=== PATIENT | female | born 1970 | race Caucasian/White ===

== ENCOUNTER → 2016-09-09 | Outpatient (CLI) | payer OTHER ==
[~2016-09-09] VITALS: Ht 170.2 cm; Wt 80.7 kg
[~2016-09-09] MED LIST: BACLOFEN 10 MG Table PO; BACLOFEN 10 MG10 MG PO; BACLOFEN 10MG T10 M1 PO; CARISOPRODOL 3350 MG PO; DILAUDID 4 MG TA4 M1 PO; FLEXERIL PO; INDERAL LA 80 M80 M1 PO; MAXALT MLT10 MG DIS; MEDROLDOSEPACK PO; MOM PO; MS CONTIN30 MG PO; NAPROSYN500 MG PO; NEURONTIN 300300 M1 PO; NORCO 5-325 TA1 EACH PO; NORCO 7.5-3251 EACH PO; NORTRIPTYLINE H25 M3 PO; OPANA5 MG PO; OSCIMIN0.125 M1 PO; OXYCODONE-ACET1 EAC2 PO; OXYCONTIN10 M1 PO; OXYCONTIN10 MG PO; OXYCONTIN20 M1 PO; OXYCONTIN20 MG PO; OXYCONTIN30 MG PO; PERCOCET 10-321 EACH PO; PERCOCET 5-3251 EACH; PREDNISONE 20 M20 MG PO; PROVENTIL IN; RELAFEN750 MG PO; REMERON 30 MG T30 M1 PO; REMERON30 MG PO; RESTORIL15 MG PO; ROZEREM 8 MG TAB8 MG PO; SENEXON-S TABL1 EACH PO; TEGRETOL XR100 MG PO; VENTOLIN HFA INH8 GM IH; ZOFRAN 4 MG ORAL4 M1 DIS; ZOFRAN 4 MG ORAL4 MG PO; ZOFRAN ODT4 MG PO; ZOFRAN4 MG PO
--- NOTE | ~2016-09-09 | HPC ---
[facility] [place] [address] PAIN MANAGEMENT CONSULTATION Name: LYNN ANDERSON Room #: REG [facility] Lam#: [id number] Admission: 09/09/16 Attend Phys: Alvin Dickens DO Discharge: Date of : 70 Report #: [id number] THIS REPORT FOR: //name// CC: Lauren Dickens DATE OF SERVICE: 09/09/2016 The patient is a 46-year-old female well known to pain clinic, typically treated for lumbar radiculopathy status post decompressive laminectomy, axial back pain requiring complex medication management. Recently diagnosed with migraine headaches as well. She has been stable on baseline medications including OxyContin 30 mg b.i.d., Percocet 10/325 up to 4 a day, gabapentin 300 mg b.i.d., baclofen 10 mg 4 times a day and Inderal 80 mg b.i.d. with occasional use of Maxalt to p.r.n. for headaches. He returns to pain clinic today. Last urine drug screen 06/18/2016 was positive for prescribed medications. We reviewed the fact that opiate medications are being used to provide analgesia adequate to support activities of daily living, not attempting to achieve a specific pain score on the 0-10 Visual Analog Scale. The current opiate medications are providing sufficient analgesia to allow the patient to participate in activities of daily living. The patient is not exhibiting any aberrant behavior suggestive of drug diversion. The patient is not having any adverse reactions to medications. The patient is not suffering from daytime somnolence or mental acuity changes. The patient is managing opiate-induced constipation with appropriate beih-wuf-betyces agents and dietary considerations. The patient was counseled on concern for caution with operating a motor vehicle while using opiate medications. A physical exam was performed and the patient's functional status was evaluated. All patients with back pain were advised against the bed rest greater than 4 days and were advised to return to normal activities. Pain score assessment was noted and the treatment plan was reviewed with the patient. All current medications, both prescribed and OTC were reviewed and reconciled on the electronic medical record. Tobacco screening was accomplished and smoking cessation was advised when indicated. BMI was noted and diet/exercise modification was recommended for all patients following outside normal parameters. I reviewed with the patient today their responsibilities to safeguard prescription medications, reviewed their responsibility to utilize medications only as prescribed by the physician. They are to seek and receive pain medications only from 1 physician group ( [facility]). They are to use 1 pharmacy and keep the clinic informed if they change pharmacies. Their responsibilities include making followup visits in a timely fashion and to avoid abrupt discontinuation of medication usage. Their responsibilities further [address] [address] PAIN MANAGEMENT CONSULTATION Name: LYNN ANDERSON Room #: REG JULIA Lam#: [id number] Admission: 09/09/16 Attend Phys: Alvin Dickens DO Discharge: Date of : 70 Report #: [id number] include bringing their medications (bottles from the pharmacy with residual pills) to the visit for possible confirmation of pill counts and the patient understands it is their responsibility to submit to random drug screens to ensure both that the medications prescribed are present, and that no other controlled substances are present. All prescriptions provided today were generated electronically. The patient has well medications that are providing sufficient analgesia to participate in activities of daily living. She has had acute change in symptoms. She does have some pain in the left hip. She woke up with pain after a day spent painting up and down on floor to paint the trim. She notes the pain was quite problematic. She took some wmsm-qpv-adaxhon anti-inflammatories with nominal efficacy. PHYSICAL EXAMINATION: Today shows pleasant 46-year-old female in moderate distress, at present, rating her pain generally 4/10, chronic back pain, but the hip pain is a 6 or 7/10. BMI is 27.9 kilograms per meter squared. Vital signs, blood pressure 143/87, pulse 99, respirations 16. Cranial nerves 2-12 are grossly intact. Pupils equal, reactive to light and accommodation. Extraocular muscles are intact. Rises from chair using armrest, moderately antalgic gait. Lower extremity strength is diminished, but symmetric. She has significant pain with passive rotation of left hip and pain with resistance abduction. ASSESSMENT: Symptomatic lumbar radiculopathy status post decompressive laminectomy, axial back pain requiring complex medication management. Comorbidity includes migraine headaches. RECOMMENDATION: Continue current medication unchanged, OxyContin 30 mg b.i.d., Percocet 10/325 up to 4 a day, gabapentin 300 mg b.i.d., baclofen 10 mg 4 times a day and Inderal 80 mg b.i.d. ASSESSMENT #2 1. Acute exacerbation of left hip DJD, possible component of left trochanteric bursitis. RECOMMENDATIONS: 1. X-rays of the hip today and 2. Left hip joint injection under fluoroscopy. PROCEDURE NOTE: After written informed consent was obtained, the patient placed in supine position. Skin overlying the left hip was cleansed with ChloraPrep. Skin wheal with Xylocaine was raised. A 22-gauge stylet needles were placed to contact the proximal aspect of the acetabular ball. Negative aspiration was accomplished. 1 mL of Omnipaque was injected, which showed spread within the joints followed with 40 mg triamcinolone plus 2 mL of 0.5% preservative-free bupivacaine. Needle was removed. The area was cleansed, Band-Aids applied. [facility] [address] [place] [address] PAIN MANAGEMENT CONSULTATION Name: LYNN ANDERSON Room #: REG [facility].#: [id number] Admission: 09/09/16 Attend Phys: Alvin Dickens DO Discharge: Date of : 70 Report #: [id number] The patient monitored for an appropriate period of time, discharged in good and stable condition. <ELECTRONICALLY SIGNED> By: Alvin Dickens DO 09/10/16 0837 [id number] 21 Alvin Dickens DO /nt
[2016-09-09 11:20] VITALS: BP 140/87
== END | disposition home or self-care (01) ==
LOC: PAIN 07:15
DX: M25.552 Pain in left hip (principal); M54.16 Radiculopathy, lumbar region; G43.909 Migraine, unspecified, not intractable, without status migrainosus

== ENCOUNTER → 2016-12-03 | Outpatient (CLI) | payer OTHER ==
[~2016-12-03] VITALS: Ht 170.2 cm; Wt 81.3 kg
--- NOTE | ~2016-12-03 | HPC ---
[facility] [address] [place] [address] PAIN MANAGEMENT CONSULTATION Name: LYNN ANDERSON Room #: REG [facility].#: [id number] Admission: 12/03/16 Attend Phys: Alvin Dickens DO Discharge: Date of : 70 Report #: [id number] THIS REPORT FOR: //name// CC: Lauren Dickens The patient is a 46-year-old female long known to the pain clinic, typically treated for chronic pain syndrome, lumbar radiculopathy status post decompressive laminectomy, axial back pain requiring high risk medication management. Last seen in the pain clinic 09/09/2016. Continued on Inderal and Maxalt for migraine headaches. Scheduled 2 narcotics including OxyContin 30 mg b.i.d., Percocet 10/325 mg four a day, baclofen 10 mg 4 times a day, gabapentin 300 mg b.i.d. for lumbar radicular pain status post decompressive laminectomy and fusion. He returns to pain clinic today noting medications continued to provide sufficient analgesia to participate in activities of daily living, rates her pain 4 on VAS, notes the pain is exacerbated with standing and walking too long. Having no problems daytime somnolence, mental acuity changes, constipation. We reviewed the fact that opiate medications are being used to provide analgesia adequate to support activities of daily living, not attempting to achieve a specific pain score on the 0-10 Visual Analog Scale. The current opiate medications are providing sufficient analgesia to allow the patient to participate in activities of daily living. The patient is not exhibiting any aberrant behavior suggestive of drug diversion. The patient is not having any adverse reactions to medications. The patient is not suffering from daytime somnolence or mental acuity changes. The patient is managing opiate-induced constipation with appropriate bifa-wso-pxxygze agents and dietary considerations. The patient was counseled on concern for caution with operating a motor vehicle while using opiate medications. A physical exam was performed and the patient's functional status was evaluated. All patients with back pain were advised against the bed rest greater than 4 days and were advised to return to normal activities. Pain score assessment was noted and the treatment plan was reviewed with the patient. All current medications, both prescribed and OTC were reviewed and reconciled on the electronic medical record. Tobacco screening was accomplished and smoking cessation was advised when indicated. BMI was noted and diet/exercise modification was recommended for all patients following outside normal parameters. I reviewed with the patient today their responsibilities to safeguard prescription medications, reviewed their responsibility to utilize medications only as prescribed by the physician. They are to seek and receive pain medications only from 1 physician group ( [facility]). They are to use 1 pharmacy and keep the clinic informed if they change pharmacies. Their [address] [address] PAIN MANAGEMENT CONSULTATION Name: LYNN ANDERSON Room #: REG JULIA Lam#: [id number] Admission: 12/03/16 Attend Phys: Alvin Dickens DO Discharge: Date of : 70 Report #: [id number] responsibilities include making followup visits in a timely fashion and to avoid abrupt discontinuation of medication usage. Their responsibilities further include bringing their medications (bottles from the pharmacy with residual pills) to the visit for possible confirmation of pill counts and the patient understands it is their responsibility to submit to random drug screens to ensure both that the medications prescribed are present, and that no other controlled substances are present. All prescriptions provided today were generated electronically. PHYSICAL EXAMINATION: Unchanged, 46-year-old female, BMI is 28.1. Vital signs stable. Rises chair using armrest. Diffuse tenderness across the low back, mildly antalgic gait. Lower extremity strength is diminished, but symmetric. ASSESSMENT: Symptomatic lumbar radiculopathy status post decompressive laminectomy requiring complex medication management, axial back pain, and chronic migraine headaches. RECOMMENDATIONS: Renew current medication unchanged for 2 months. Last urine drug screen 06/18/2016, positive for prescribed medications. Discharged in good and stable condition. <ELECTRONICALLY SIGNED> By: Alvin Dickens DO 12/08/16 0755 [id number] Alvin Dickens DO /nt
[2016-12-03 13:25] VITALS: BP 136/74
== END ==
LOC: PAIN 07:19
DX: M54.16 Radiculopathy, lumbar region (principal); G89.4 Chronic pain syndrome; G43.809 Other migraine, not intractable, without status migrainosus

== ENCOUNTER → 2017-06-10 | Outpatient (CLI) | payer OTHER ==
[~2017-06-10] VITALS: Ht 170.2 cm; Wt 78.8 kg
[~2017-06-10] MED LIST changes: +HYDROCODON-ACE1 EAC5 PO; +INDERAL LA80 MG PO; +MAXALT MLT10 MG PO; +PERCOCET 7.5-31 EAC1 PO; +PERCOCET 7.5-31 EACH PO; +PERCOCET PO; +REMERON15 MG PO; -REMERON30 MG PO; +ZOFRAN ODT4 MG DISSOLVE
--- NOTE | ~2017-06-10 | HPC ---
[facility] [address] [place] [address] PAIN MANAGEMENT CONSULTATION Name: LYNN ANDERSON [id number] Admission: 06/10/17 Attend Phys: Irina Andino MD Discharge: Date of : 70 Report #: [id number] THIS REPORT FOR: //name// CC: NORAH physician/PCP Irina Andino DATE OF SERVICE: 06/10/2017 FOLLOWUP HISTORY: The patient is a 47-year-old female who has been followed in the pain clinic because of chronic pain. She is experiencing pain between her shoulder blades, center of her back and low back area at this juncture. Notes that the pain is worse with prolonged walking, standing, bending, climbing in and out of her truck. She finds that her current medications of baclofen, OxyContin, oxycodone, and Maxalt continued to be stabilizing her discomfort. She has been treated for lumbar radiculopathy and axial back pain by Dr. Dickens. She has had a decompressive laminectomy in the past. This is required because of the chronic pain, high risk complex medication management. The patient states that she has taken her medications as prescribed. She keeps them in a guarded area. She is not having any problems with their use. We discussed the use of opioid medications. She is aware of the large amount of opioid medications have been getting because of complications in some people with their use. She feels that her medications are helpful. She has had discussion on numerous times with Dr. Dickens regarding the goal of medications. She is aware that these medications are most likely cannot totally alleviate her pain. From a review of her chart, she has not been exhibiting any aberrant behavior, which suggested drug diversion. She is not having any problems with mentation nor somnolence. She monitors her GI symptomatology. She is not having significant problems with constipation. States that she is remaining reasonably active and this is because of use of her medications. It will be much more difficult without them. The patient states that she continues to safeguard her medications, keeping them in a safe environment in her house. She only gets medications from the pain clinic. She uses the same pharmacy to get her medications. ALLERGIES: VANCOMYCIN, PENICILLIN, SULFA, DAYPRO, ADHESIVE TAPE. MEDICATIONS: Which have been reviewed are Maxalt 10 mg dissolved under the tongue as directed, propranolol [place] 80 mg b.i.d., Percocet 10/325 q.i.d., OxyContin 30 mg 1 p.o. b.i.d., Zofran 4 mg q. 8 hours p.r.n. nausea, vomiting, nortriptyline 25 mg at bedtime, gabapentin 300 mg b.i.d., baclofen 10 mg t.i.d. as needed, Remeron 15 mg at bedtime, Ventolin inhaler 4 times p.r.n., Senexon tablet at bedtime, and Restoril 15 mg at bedtime and ramelteon 8 mg at bedtime. PHYSICAL EXAMINATION: VITAL SIGNS: Height 5 feet 7 inches, weight 173 pounds, BMI 27.2. Blood pressure 119/81, pulse 85, respirations 16, and saturation 97%. [address] [address] PAIN MANAGEMENT CONSULTATION Name: JUSTINLYNN LAWSON Room #: REG JULIA Lam#: [id number] Admission: 06/10/17 Attend Phys: Irina Andino MD Discharge: Date of : 70 Report #: [id number] PAIN CLINIC ASSESSMENT: 1. History of osteoarthritis, rheumatoid arthritis neither are problematic. 2. Pain intensity 08/09. 3. Fall risk. The patient does not need help walking. She fell 5 days ago, right foot was painful bruise. No x-rays or Emergency Room visits after the fall. 4. The patient is not on blood thinners. 5. History of hypertension. The patient is not on being treated for hypertension. 6. Opioid therapy. The patient has signed an opioid contract. 7. Risk assessment tool 13, which is high risk. We will continue to monitor. 8. Functional assessment tool. 9. Recreational drug use. Denies use of recreational drugs. 10. Tobacco. Never smoked cigarettes. 11. Alcohol. Uses alcohol infrequently. IMPRESSION: 1. Lumbar radiculopathy, status post decompressive laminectomy. 2. Axial back pain. 3. High risk complex medication regimen. 4. Headaches. RECOMMENDATION: We have discussed the patient's medication regimen with her. We will continue with her current medical regimen of Maxalt, oxycodone, OxyContin, and baclofen. The patient will monitor her steps with a hope that she does not trip, fall and hurt herself again. She will call us if she has any problems with her medications. We would like to thank you for letting us participate in her care. We hope she continues to improve. <ELECTRONICALLY SIGNED> By: Irina Andino MD 07/13/17 1424 [id number] Irina Andino MD /HADLEY
[2017-06-10 09:00] VITALS: BP 119/81
== END ==
LOC: PAIN 06-06 07:05
DX: M54.16 Radiculopathy, lumbar region (principal); R51 Headache; M19.90 Unspecified osteoarthritis, unspecified site; M06.9 Rheumatoid arthritis, unspecified; I10 Essential (primary) hypertension; F11.90 Opioid use, unspecified, uncomplicated; F17.200 Nicotine dependence, unspecified, uncomplicated; Z79.899 Other long term (current) drug therapy; Z98.890 Other specified postprocedural states; Z88.1 Allergy status to other antibiotic agents; Z88.0 Allergy status to penicillin; Z88.2 Allergy status to sulfonamides

== ENCOUNTER → 2018-03-07 | Outpatient (CLI) | payer OTHER ==
[~2018-03-07] VITALS: Ht 170.2 cm; Wt 77.5 kg
--- NOTE | ~2018-03-07 | HPC ---
[facility] [address] [place] [address] PAIN MANAGEMENT CONSULTATION Name: LYNN ANDERSON [id number] Admission: 03/07/18 Attend Phys: Luz Hagen Discharge: Date of : 70 Report #: [id number] THIS REPORT FOR: //name// CC: Luz Nayak MD [facility] physician/PCP Starla Andino MD DATE OF SERVICE: 03/07/2018 The patient here today for a refill of her medications for her chronic low back pain and her migraines. HISTORY OF PRESENT ILLNESS: The patient comes today for refill of her medications for her low back pain, migraines, and her bursitis. The patient states that her pain score is a 6/10 today. She tells me that she has had a migraine recently with the change in the weather, but that her Maxalt and her propranolol have significantly reduced her daily migraines. The patient tells me that she recently had the flu and could not keep her medications down and had decreased some of her OxyContin use due to this illness. She tells me that she is feeling better today. She is here for a refill of her medications, tells me that her pain is worse when she is walking too long or especially at night when she lays on her right hip due to her bursitis. The patient was forewarned that we would be decreasing her medications today. The patient comes with a plan wondering if we could give her oxycodone 10/325 several pills a day as well as keeping her OxyContin the same at 20 mg in the morning and 30 at night. ALLERGIES: TAPE, PENICILLIN, SULFA, DAYPRO AND VANCOMYCIN. CURRENT LIST OF MEDICATIONS: Oxycodone 7.5/325 four times a day, OxyContin 20 mg in the morning, OxyContin 30 mg in the evening, Maxalt 10 mg two tablets in a day, propranolol 80 mg twice a day, Zofran 4 mg every 8 hours as needed for nausea and vomiting, nortriptyline 25 mg takes 2 tablets at bedtime, gabapentin 300 mg twice a day, baclofen 10 mg as needed, Remeron 45 mg at bedtime, Ventolin inhaler, Senokot, Restoril 15 mg at bedtime, Rozerem 8 mg at bedtime. PQRS: 1. States some osteoarthritis in her hips. Denies rheumatoid arthritis. Height is 5 feet 7 inches, weight 170 with a BMI of 26.7. 2. Vital signs are 113/70, pulse is 92, respirations 16, oxygen sat is 96%. 3. Pain score 6/10. 4. Denies dizziness. Does not need help walking or standing. Has not fallen in the last 3 months. 5. Denies blood thinners and takes no hypertension medicines. 6. Opioid therapy is greater than 6 weeks. She has opioid signed contract on the chart. [address] [address] PAIN MANAGEMENT CONSULTATION Name: LYNN ANDERSON Room #: REG JULIA Lam#: [id number] Admission: 03/07/18 Attend Phys: Luz Hagen Discharge: Date of : 70 Report #: [id number] 7. Her risk assessment tool is low. Her functional assessment is 32/70. 8. Denies recreational drug use. States she does not smoke and does use occasional alcohol. [place] and [place] K-TRACS were checked on this patient, looks like she has been filling appropriately from Dr. Andino for her narcotic medications. The patient tells me she does safeguard these medicines. There is urine drug screen on the chart that did raise some red flags. The patient since she has been sick not taking her medications as prescribed. We will check it on the next visit and see if it is agreeable to what we are prescribing at that time. The patient was not told of this. It would be a random drug screen for her. PHYSICAL EXAMINATION: GENERAL: This is a well-developed, well-nourished white female, appears her stated age of 48. The patient is alert and orientated. HEENT: Normocephalic, atraumatic. Extraocular eye movements are intact. Mucous membranes are moist. Hearing is within normal limits. NECK: Without adenopathy or JVD. MUSCULOSKELETAL: The patient complains of low back pain and right hip pain, right bursitis, especially tender to the touch. The patient also complains of headache today. DIAGNOSTIC IMPRESSION: Chronic low back pain, history of spinal cord stimulator, chronic migraine headaches, right bursitis, shoulder pain. We reviewed the fact that opiate medications are being used to provide analgesia adequate to support activities of daily living, not attempting to achieve a specific pain score on the 0-10 Visual Analog Scale. The current opiate medications are providing sufficient analgesia to allow the patient to participate in activities of daily living. The patient is not exhibiting any aberrant behavior suggestive of drug diversion. The patient is not having any adverse reactions to medications. The patient is not suffering from daytime somnolence or mental acuity changes. The patient is managing opiate-induced constipation with appropriate gmqb-jli-syldnmg agents and dietary considerations. The patient was counseled on concern for caution with operating a motor vehicle while using opiate medications. A physical exam was performed and the patient's functional status was evaluated. All patients with back pain were advised against the bed rest greater than 4 days and were advised to return to normal activities. Pain score assessment was noted and the treatment plan was reviewed with the patient. All current medications, both prescribed and OTC were reviewed and reconciled on the electronic medical record. Tobacco screening was accomplished and smoking cessation was advised when indicated. BMI was noted and diet/exercise modification was recommended for all patients following outside normal parameters. [address] [address] PAIN MANAGEMENT CONSULTATION Name: LYNN ANDERSON [facility] [id number] Admission: 03/07/18 Attend Phys: Luz Hagen Discharge: Date of : 70 Report #: [id number] I reviewed with the patient today their responsibilities to safeguard prescription medications, reviewed their responsibility to utilize medications only as prescribed by the physician. They are to seek and receive pain medications only from 1 physician group ( [facility]). They are to use 1 pharmacy and keep the clinic informed if they change pharmacies. Their responsibilities include making followup visits in a timely fashion and to avoid abrupt discontinuation of medication usage. Their responsibilities further include bringing their medications (bottles from the pharmacy with residual pills) to the visit for possible confirmation of pill counts and the patient understands it is their responsibility to submit to random drug screens to ensure both that the medications prescribed are present, and that no other controlled substances are present. All prescriptions provided today were generated electronically. PLAN: 1. The patient returns today for refill of her medications. She had been told prior on the phone and by Dr. Edd Andino that we will be decreasing her medications following the CDC guidelines. The patient is unhappy with this, thinks that the government is trying to push people towards buying narcotics on the street or other illicit drugs. I encouraged her that this is not the case. They are just trying to control the opioid crisis that is talked about in the news. The patient's current MME is 120. I explained to the patient in depth how this was determined by the CDC guidelines in calculating her current medications. The patient did tell me that she has decreased her OxyContin slightly on her own due to her illness and not able to keep anything down. 2. After much discussion today regarding oxycodone use, 10 versus 7.5 versus 5 or a different type of medication as opioid rotation, patient is agreeable to decreasing her medicines. 3. The patient was given prescription of OxyContin 20 mg twice a day for #60 for today and in 4 weeks. Second medication that was decided with patient agreeable to try is hydrocodone 10/325. The patient will take 4 tablets, #120 for the first month. Then scripts will be decreased to #90 for 4-week release. This will give patient 90 MME per day. The patient is agreeable with this plan of care. Was discussed that opioid rotation may be much beneficial for the patient as it is a new medicine for the body, the body has possibly gotten used to her oxycodone use. The patient is agreeable with this plan of care. 4. The patient also wondered about hip injection for her bursitis. I explained to the patient that we are unable to give injections or medications in the same day, that she was offered an appointment with Dr. Andino for hip injection and she declined that presently. 5. The patient will be seen in followup in 2 months. At that time, we will recheck a drug screen on her and see how the patient is doing with this decrease of her opioid narcotics. [facility] [address] [place] [address] PAIN MANAGEMENT CONSULTATION Name: LYNN ANDERSON Room #: REG [facility] Genaro#: [id number] Admission: 03/07/18 Attend Phys: Luz Hagen Discharge: Date of : 70 Report #: [id number] The patient was seen today in collaboration with Dr. Fer Dickens. <ELECTRONICALLY SIGNED> By: Luz Hagen 03/08/18 0718 1121 0141 Luz Hagen /nt
[2018-03-07 08:51] VITALS: BP 113/70
== END ==
LOC: PAIN 06:57
DX: M54.5 Low back pain (principal); G89.29 Other chronic pain; M75.51 Bursitis of right shoulder; G43.909 Migraine, unspecified, not intractable, without status migrainosus; Z79.899 Other long term (current) drug therapy

== ENCOUNTER → 2018-05-05 | Outpatient (CLI) | payer OTHER ==
[~2018-05-05] VITALS: Ht 170.2 cm; Wt 74.7 kg
[~2018-05-05] MED LIST changes: +ACETAMINOPHEN-1 EAC1 PO
[2018-05-05 08:13] VITALS: BP 105/45
--- NOTE | 2018-05-05 08:19 | NUR ---
Pain Clinic Assessment: 1. History of Osteoarthritis: Not Applicable History of Rheumatoid Arthritis: Not Applicable 2. Height: 5 ft. 7 in. 170.2 cm. Weight: 164.6 lb. oz. 74.662 kg. Patient's BMI: 25.8 3. Vital Signs: BP: 105/45 Pulse: 91 Resp: 16 Temp: 02 Sat: 96 ECG Mon: 4. Pain Intensity: 9 5. Fall Risk: Dizziness: Y Needs help standing or walking: N Fallen in the last 3 months: Y Fall risk comments: 6. Patient on Blood Thinner: None 7. History of Hypertension: N 8. Opioid Therapy greater than 6 weeks: Y Opiate Contract Signed: 01/01/16 9. Risk Assessment Tool Provided: 3/low 10. Functional Assessment Tool: 11. Recreational Drug Use: Never Drug Type: Tobacco Use: Never Smoker Tobacco Type: Amount or Packs/day: How Many Years: Alcohol Use: Yes Frequency: Special Occasions Quant: 1-2
--- NOTE | 2018-05-08 07:45 | HPC ---
[facility] [place] [address] PAIN MANAGEMENT CONSULTATION Name: LYNN ANDERSON Room #: REG [facility]#: [id number] Admission: 05/05/18 Attend Phys: Luz Hagen Discharge: Date of : 70 Report #: [id number] THIS REPORT FOR: //name// CC: Luz Hagen [facility] physician/PCP DATE OF SERVICE: 05/05/2018 CHIEF COMPLAINT: Low back pain and right foot pain. HISTORY OF PRESENT ILLNESS: This is a 48-year-old female, returns to the pain clinic today for refill of her medications for her low back pain, migraines and today she has right foot pain due to a recent fall where she broke a bone in her right outer aspect of her foot. The patient is in a boot today due to this recent fall. The patient tells me her pain is a 9/10 today, worse with walking, standing and any activity. Her medications are somewhat helpful, but they have not been as helpful as in the past when she was on a previous higher level of her OxyContin. The patient also tells me that her spinal cord stimulator battery about a month ago, has not had it checked by [employer], but tells me that has also increased her pain. She would like an increase in her medications today. She did get some Tylenol No. 3 from the surgeon that she saw in [place] when she fractured her foot. ALLERGIES: Tape, penicillin, sulfa, Daypro and vancomycin. MEDICATIONS: Current list of medications: 1. Tylenol No. 3. 2. Zofran as needed. 3. Maxalt 10 mg as needed for migraines. 4. Propranolol 80 mg twice a day. 5. Hydrocodone 10/325 four times a day. 6. OxyContin 20 mg twice a day. 7. Nortriptyline 25 mg two at bedtime. 8. Gabapentin 300 mg twice a day. 9. Baclofen one tablet as needed. 10. Remeron 45 mg at bedtime, 11. Senokot, 12. Restoril 15 mg at bedtime. 13. Rozerem 8 mg at bedtime. PQRS: 1. She has some osteoarthritis in her hips. Denies rheumatoid arthritis. 2. Height is 5 feet and 7 inches, weight is 164. BMI is 25.8. 3. Vital Signs: Blood pressure 105/45, pulse is 91, respirations 16, oxygen sat is 96%. Pain score is 9/10. 4. Fall risk. Denies dizziness, does not need help walking [place] [address] PAIN MANAGEMENT CONSULTATION Name: LYNN ANDERSON Room #: REG JULIA Lam#: [id number] Admission: 05/05/18 Attend Phys: Luz Hagen Discharge: Date of : 70 Report #: [id number] fallen in the last 3 months and in a walking boot right now. 5. Blood thinner. The patient denies. She does not take any hypertensive medicines. 6. Opioid therapy is greater than 6 weeks and therefore an opioid signed contract is on the chart. 7. Risk assessment tool is low. Her functional assessment is 32/70. 8. Recreational drug use. She denies. She is not a smoker and occasionally drinks 1-2 drinks of alcohol a week. She did check her prescription monitoring system. The patient is filling all of her narcotic medicines from doctors within this clinic except that she did fill the Tylenol No. 3 from a doctor in [place]. We will check a urine drug screen on the next visit. Her last one has been less than a year old. PHYSICAL EXAMINATION: GENERAL: This is a well-developed, well-nourished white female that appears her stated age. She is alert and orientated. HEENT: Normocephalic and atraumatic. Extraocular eye muscles are intact. Mucous membranes are moist. Hearing is within normal limits. NECK: Without adenopathy or JVD. MUSCULOSKELETAL SYSTEMS: The patient complains of low back pain and right hip pain and right foot pain. EXTREMITIES: Right foot is in a walking boot today. Her gait is antalgic. She does also have some lower extremity swelling, 1-2+ in her foot and ankle area. ASSESSMENT: 1. Chronic low back pain, history of spinal cord stimulator. 2. Chronic migraine headaches. 3. Right bursitis. 4. Shoulder pain. 5. Right foot fracture. 6. High risk complex medication regime under opioid management. 7. Lumbar radiculopathy, status post decompression laminectomy. We reviewed the fact that opiate medications are being used to provide analgesia adequate to support activities of daily living, not attempting to achieve a specific pain score on the 0-10 Visual Analog Scale. The current opiate medications are providing sufficient analgesia to allow the patient to participate in activities of daily living. The patient is not exhibiting any aberrant behavior suggestive of drug diversion. The patient is not having any adverse reactions to medications. The patient is not suffering from daytime somnolence or mental acuity changes. The patient is managing opiate-induced constipation with appropriate cbem-omm-qfufovw agents and dietary considerations. The patient was counseled on concern for caution with operating a motor vehicle while using opiate medications. A physical exam was performed and the patient's functional status was evaluated. [address] [address] PAIN MANAGEMENT CONSULTATION Name: LYNN ANDERSON Room #: REG [facility]#: [id number] Admission: 05/05/18 Attend Phys: Luz Hagen Discharge: Date of : 70 Report #: [id number] All patients with back pain were advised against the bed rest greater than 4 days and were advised to return to normal activities. Pain score assessment was noted and the treatment plan was reviewed with the patient. All current medications, both prescribed and OTC were reviewed and reconciled on the electronic medical record. Tobacco screening was accomplished and smoking cessation was advised when indicated. BMI was noted and diet/exercise modification was recommended for all patients following outside normal parameters. I reviewed with the patient today their responsibilities to safeguard prescription medications, reviewed their responsibility to utilize medications only as prescribed by the physician. They are to seek and receive pain medications only from 1 physician group ( [facility]). They are to use 1 pharmacy and keep the clinic informed if they change pharmacies. Their responsibilities include making followup visits in a timely fashion and to avoid abrupt discontinuation of medication usage. Their responsibilities further include bringing their medications (bottles from the pharmacy with residual pills) to the visit for possible confirmation of pill counts and the patient understands it is their responsibility to submit to random drug screens to ensure both that the medications prescribed are present, and that no other controlled substances are present. All prescriptions provided today were generated electronically. PLAN: 1. We discussed treatment options with the patient today. She has recently fractured her foot in a fall and tells me that her pain has increased significantly since that time. She did get a prescription from the surgeon that she did not tell us about until today, in a walking boot, but it continues to be problematic. She does not have a followup visit with the surgeon regarding her fracture. I will refer her to [facility] for a followup here since her fall was in [place]. The patient is agreeable with that. She understands that she should have told us about the medicines that she got from the surgeon she saw in [place]. 2. The patient is requesting an increase in her OxyContin and/or Osnabrock. We had decreased her trying to get her closer to the CDC guidelines. We had done this slowly over several months. The patient tells me it has not been working. Her pain is increased, but also tells me that her spinal cord stimulator battery has within this time. We discussed sending her to a neurosurgeon to have the battery placed. The patient tells me at this time, she is not able to afford that and would like an increase in her medicines. I explained to her that I could keep her at her Osnabrock 10/325 for four tablets a day for another two months and then we will have to decrease her back to three a day again, we would not be increasing her OxyContin dose. We are trying to follow the CDC guidelines by keeping people in 90 MME or below. The patient understands that and will accept the prescriptions that we give her. I did strongly encourage her to let us refer her for a spinal cord stimulator battery replacement and to have her call [address] [address] PAIN MANAGEMENT CONSULTATION Name: JUSTINLYNN Room #: REG JULIA Lam#: [id number] Admission: 05/05/18 Attend Phys: Luz Hagen Discharge: Date of : 70 Report #: [id number] if she changes her mind. 3. Scripts given today for OxyContin 20 mg #60 for today and 4-week release hydrocodone 10/325, #120 for today and 4-week release, baclofen 10 mg four times a day, 120 with one refill; gabapentin 300 mg, #60 with one refill, nortriptyline 25 mg two tablets at bedtime, #60 with one refill, propranolol 80 mg twice a day with one refill and Maxalt #12 with one refill. 3. The patient was told to make a followup appointment in [address] Andino. Upon leaving, the patient tells us that she does not want to see Dr. Andino for personal reasons. We instructed her that Dr. Angelo's practice was full and that Dr. Alvin Dickens had encouraged her to see Dr. Andino. The patient will think about it or she will look for another pain clinic to see, so we will see her in followup in 2 months' time frame or we will send her records elsewhere if need be. In two months, we will recheck a drug screen on her since it will be a year at that point. 4. Care given today in collaboration with Dr. Edd Andino. <ELECTRONICALLY SIGNED> By: Luz Hagen 05/08/18 0745 [id number] [id number] Luz Hagen /damaris
== END ==
LOC: PAIN 07:12
DX: M54.16 Radiculopathy, lumbar region (principal); S92.901A Unspecified fracture of right foot, initial encounter for closed fracture; M75.51 Bursitis of right shoulder; G43.909 Migraine, unspecified, not intractable, without status migrainosus; Z79.891 Long term (current) use of opiate analgesic; X58.XXXA Exposure to other specified factors, initial encounter; Y93.89 Activity, other specified; Y92.89 Other specified places as the place of occurrence of the external cause; Y99.8 Other external cause status

== ENCOUNTER → 2018-07-05 | Outpatient (CLI) | payer OTHER ==
[~2018-07-05] VITALS: Ht 170.2 cm; Wt 69.7 kg
[2018-07-05 08:01] VITALS: BP 131/75
--- NOTE | 2018-07-05 08:09 | NUR ---
Pain Clinic Assessment: 1. History of Osteoarthritis: Not Applicable History of Rheumatoid Arthritis: Not Applicable 2. Height: 5 ft. 7 in. 170.2 cm. Weight: 153.6 lb. oz. 69.672 kg. Patient's BMI: 24.1 3. Vital Signs: BP: 131/75 Pulse: 104 Resp: 14 Temp: 02 Sat: 98 ECG Mon: 4. Pain Intensity: 6 5. Fall Risk: Dizziness: N Needs help standing or walking: N Fallen in the last 3 months: N Fall risk comments: 6. Patient on Blood Thinner: None 7. History of Hypertension: N 8. Opioid Therapy greater than 6 weeks: Y Opiate Contract Signed: 01/01/16 9. Risk Assessment Tool Provided: LOW RISK 0/3 10. Functional Assessment Tool: 11. Recreational Drug Use: Never Drug Type: Tobacco Use: Never Smoker Tobacco Type: Amount or Packs/day: How Many Years: Alcohol Use: Yes Frequency: Special Occasions Quant: 1
== END ==
LOC: PAIN 06:48
DX: M54.5 Low back pain (principal); M25.571 Pain in right ankle and joints of right foot; Z79.891 Long term (current) use of opiate analgesic

== ENCOUNTER → 2018-09-04 | Outpatient (CLI) | payer OTHER ==
[~2018-09-04] VITALS: Ht 170.2 cm; Wt 74.8 kg
[~2018-09-04] MED LIST changes: +BACLOFEN20 MG PO
[2018-09-04 08:19] VITALS: BP 103/67
--- NOTE | 2018-09-04 08:40 | NUR ---
Pain Clinic Assessment: 1. History of Osteoarthritis: Not Applicable History of Rheumatoid Arthritis: Not Applicable 2. Height: 5 ft. 7 in. 170.2 cm. Weight: 164.8 lb. oz. 74.753 kg. Patient's BMI: 25.8 3. Vital Signs: BP: 103/67 Pulse: 89 Resp: 16 Temp: 02 Sat: 97 ECG Mon: 4. Pain Intensity: 6 5. Fall Risk: Dizziness: N Needs help standing or walking: N Fallen in the last 3 months: N Fall risk comments: 6. Patient on Blood Thinner: None 7. History of Hypertension: N 8. Opioid Therapy greater than 6 weeks: Y Opiate Contract Signed: 01/01/16 9. Risk Assessment Tool Provided: LOW RISK 0/3 10. Functional Assessment Tool: 11. Recreational Drug Use: Never Drug Type: Tobacco Use: Never Smoker Tobacco Type: Amount or Packs/day: How Many Years: Alcohol Use: Yes Frequency: Special Occasions Quant: 1
--- NOTE | 2018-09-05 14:40 | HPC ---
[facility] [place] [address] PAIN MANAGEMENT CONSULTATION Name: LYNN ANDERSON Room #: REG [facility]#: [id number] Admission: 09/04/18 ������������������ Attend Phys: Luz Hagen Discharge: ������������������ Date of : 70 Report #: [id number] THIS REPORT FOR: //name// CC: Luz Hagen [facility] physician/PCP DATE OF SERVICE: 09/04/2018 CHIEF COMPLAINT: Chronic low back and right foot pain. HISTORY OF PRESENT ILLNESS: This is a 48-year-old female who returns to the pain clinic today for a followup for her medication management. She tells me that her pain is a 6 today, mostly in her lower back, legs and ankle. She tells me that she had a work on her truck before she came today to get it started and usually does not take her pain medicines until after she gets home from driving, so therefore her pain is slightly elevated. She has worse pain with activity and walking, bending. Her medications are helpful. She has a spinal cord stimulator that does not work. The battery has and the patient is not looking into replacing the battery at this time. She denies any problems with constipation. She would just like a refill of her medications today. ALLERGIES: TAPE, PENICILLIN, SULFA, DAYPRO and VANCOMYCIN. CURRENT MEDICATIONS: Maxalt, propranolol 80 mg b.i.d., OxyContin 20 mg b.i.d., Zofran as needed, hydrocodone 10/325 four times a day, nortriptyline 25 mg 2 at bedtime, gabapentin 300 mg b.i.d., baclofen 10 mg p.r.n., Remeron 45 mg at bedtime, albuterol inhaler, Senokot, Restoril 15 mg at bedtime and Rozerem 8 mg at bedtime. PQRS: 1. The patient has some arthritic changes in her hips. Denies any rheumatoid arthritis. 2. Height is 5 feet 7 inches, weight is 164 and BMI is 25. 3. VITAL SIGNS: Blood pressure 103/67, pulse is 89, respirations 16, oxygen sat is 97. 4. Pain score is 6/10. 5. Fall risk. Denies dizziness. She does not need help with walking or standing. She has not fallen in the last 3 months. 6. The patient is not on any blood thinners or antihypertensives. 7. Opioid therapy is greater than 6 weeks, therefore, as opioid signed contract is in the chart. Her risk assessment tool is low. Her functional assessment is . 8. Recreational drug use, she denies; not a smoker but does drink alcohol. We did check the prescription monitoring system. The patient is filling her narcotics appropriately from Dr. Andino. We did check [place] [id number] PAIN MANAGEMENT CONSULTATION Name: LYNN ANDERSON Room #: REG [facility] Lam#: [id number] Admission: 09/04/18 ������������������ Attend Phys: Luz Hagen Discharge: ������������������ Date of : 70 Report #: [id number] her last visit, it did not show any hydrocodone or nortriptyline. Her OxyContin was present as well as tramadol. We do not write prescriptions for tramadol. The patient tells me she is unsure how that was in there. It did state that her last dose of medicine was on the 5th, this was taken on the 6th, so the hydrocodone could possibly not be in there because of the timing of the screen since she was out of her medications at that visit. PHYSICAL EXAMINATION: GENERAL: This is a well-developed, well-nourished white female who appears her stated age. She is alert and orientated. Her affect is appropriate. Her speech is fluent. HEENT: Normocephalic and atraumatic. Extraocular eye muscles are intact. Mucous membranes are moist. NECK: Without adenopathy or JVD. MUSCULOSKELETAL: Complains of pain in her right hip and right foot as well as her lower back. She has an antalgic gait. Her lower extremity strength judged to be 5/5 in all major muscle groups. ASSESSMENT: 1. Chronic back pain, history of spinal cord stimulator. 2. Chronic migraine headaches. 3. Shoulder pain. 4. Recent right foot fracture, no longer in a boot. 5. High risk medical management under terms of written opioid agreement. 6. Lumbar radiculopathy, status post decompression laminectomy. We reviewed the fact that opiate medications are being used to provide analgesia adequate to support activities of daily living, not attempting to achieve a specific pain score on the 0-10 Visual Analog Scale. The current opiate medications are providing sufficient analgesia to allow the patient to participate in activities of daily living. The patient is not exhibiting any aberrant behavior suggestive of drug diversion. The patient is not having any adverse reactions to medications. The patient is not suffering from daytime somnolence or mental acuity changes. The patient is managing opiate-induced constipation with appropriate omhr-dtf-aezinch agents and dietary considerations. The patient was counseled on concern for caution with operating a motor vehicle while using opiate medications. A physical exam was performed and the patient's functional status was evaluated. All patients with back pain were advised against the bed rest greater than 4 days and were advised to return to normal activities. Pain score assessment was noted and the treatment plan was reviewed with the patient. All current medications, both prescribed and OTC were reviewed and reconciled on the electronic medical record. Tobacco screening was accomplished and smoking cessation was advised when indicated. BMI was noted and diet/exercise modification was recommended for all patients following outside normal [facility] [address] [place] [address] PAIN MANAGEMENT CONSULTATION Name: LYNN ANDERSON Room #: REG [facility].#: [id number] Admission: 09/04/18 ������������������ Attend Phys: Luz Hagen Discharge: ������������������ Date of : 70 Report #: [id number] parameters. I reviewed with the patient today their responsibilities to safeguard prescription medications, reviewed their responsibility to utilize medications only as prescribed by the physician. They are to seek and receive pain medications only from 1 physician group ( [facility]). They are to use 1 pharmacy and keep the clinic informed if they change pharmacies. Their responsibilities include making followup visits in a timely fashion and to avoid abrupt discontinuation of medication usage. Their responsibilities further include bringing their medications (bottles from the pharmacy with residual pills) to the visit for possible confirmation of pill counts and the patient understands it is their responsibility to submit to random drug screens to ensure both that the medications prescribed are present, and that no other controlled substances are present. All prescriptions provided today were generated electronically. PLAN: 1. We discussed treatment plan with this patient. Again, we discussed the CDC guidelines of morphine milliequivalent of [address] Andino's written discussion from last visit and his plan that he has written and placed in the chart. I explained to the patient that we will be decreasing her medications today. The patient currently is on 100 morphine mEq a day per the CDC guidelines. Our plan is to decrease her from 4 hydrocodone 10/325 to 3 tablets a day. This will decrease her to 90 mme a day. The patient is not happy with this. She feels like her pain is already increased, but understands the CDC guidelines. She is wondering if we are able to see her, then every 3 months. I explained to her not at the 50-90mme. It is the guideline of the clinic that we see them on every 2-month basis. I did discuss with the patient in the future if we want to get her to 50 that would equate to 5 hydrocodone 10 a day or decreasing her OxyContin from 20 to 10 b.i.d. with 2 hydrocodone. Another possibility is placing her on Hysingla medication, which is a long-acting hydrocodone, I did tell the patient we will not decrease her for 4 months, so when she comes in 2 months, we will continue with the same medication rate. The patient verbalizes understanding. 2. Scripts given today for Maxalt 10 mg #12 with one additional refill; Inderal 80 mg b.i.d. #60 with one additional refill Zofran 4 mg q. 8, #60 with no refills; nortriptyline 25 mg 2 tablets at night 60 with one additional refill; gabapentin 300 mg b.i.d., 60 with one additional refill; OxyContin 20 mg b.i.d. 60 for today and 4-week release and hydrocodone 10/325 t.i.d., #90 for today and 4-week release. 3. The patient asked if she could have an increase in her muscle relaxant, she tells me that is not working as well as it used to and with the increase in pain that she is experiencing from her decrease in medicine. She was wondering if we could increase that. I explained to her that we could increase her baclofen to 20 mg tablets that she was only allowed 3 a day. She verbalizes understanding. [facility] [address] [place] [address] PAIN MANAGEMENT CONSULTATION Name: LYNN ANDERSON Room #: REG JULIA FloresCristela#: [id number] Admission: 09/04/18 ������������������ Attend Phys: Luz Hagen Discharge: ������������������ Date of : 70 Report #: [id number] Scripts given for 90 tablets of baclofen 20 with one additional refill. 4. The patient will return in 2-month time period for her medications. The patient seen under collaboration with Dr. Edd Andino today. ��������������������������������������������� <ELECTRONICALLY SIGNED> ���������������������������������������� By: Luz Hagen ��������������������������������������������� 09/05/18 1440 [id number] Luz Hagen /damaris
== END ==
LOC: PAIN 06:46
DX: G89.29 Other chronic pain (principal); M54.16 Radiculopathy, lumbar region; G43.909 Migraine, unspecified, not intractable, without status migrainosus; M16.0 Bilateral primary osteoarthritis of hip; Z98.890 Other specified postprocedural states; Z79.891 Long term (current) use of opiate analgesic; Z79.899 Other long term (current) drug therapy; Z88.8 Allergy status to other drugs, medicaments and biological substances; Z88.1 Allergy status to other antibiotic agents; Z88.2 Allergy status to sulfonamides; Z88.0 Allergy status to penicillin

== ENCOUNTER → 2019-01-03 | Outpatient (CLI) | payer OTHER ==
[~2019-01-03] VITALS: Ht 170.2 cm; Wt 69.1 kg
[~2019-01-03] MED LIST changes: +LIORESAL 10 MG10 MG PO; +PROPRANOLOL 8080 MG PO
[2019-01-03 09:13] VITALS: BP 131/84
--- NOTE | 2019-01-03 09:16 | NUR ---
Pain Clinic Assessment: 1. History of Osteoarthritis: Not Applicable History of Rheumatoid Arthritis: Not Applicable 2. Height: 5 ft. 7 in. 170.2 cm. Weight: 152.4 lb. oz. 69.128 kg. Patient's BMI: 23.9 3. Vital Signs: BP: 131/84 Pulse: 110 Resp: 16 Temp: 02 Sat: 99 ECG Mon: 4. Pain Intensity: 7 5. Fall Risk: Dizziness: N Needs help standing or walking: N Fallen in the last 3 months: N Fall risk comments: 6. Patient on Blood Thinner: None 7. History of Hypertension: N 8. Opioid Therapy greater than 6 weeks: Y Opiate Contract Signed: 01/01/16 9. Risk Assessment Tool Provided: LOW RISK 0/3 10. Functional Assessment Tool: 11. Recreational Drug Use: Never Drug Type: Tobacco Use: Never Smoker Tobacco Type: Amount or Packs/day: How Many Years: Alcohol Use: No Frequency: Quant:
--- NOTE | 2019-01-04 08:17 | HPC ---
[facility] [place] [address] PAIN MANAGEMENT CONSULTATION Name: LYNN ANDERSON Room #: REG [facility] Sandra.#: [id number] Admission: 01/03/19 Attend Phys: Luz Hagen Discharge: Date of : 70 Report #: [id number] THIS REPORT FOR: //name// CC: TAMY Hagen Physician staff DATE OF SERVICE: 01/03/2019 CHIEF COMPLAINT: Low back pain, right foot and ankle pain and migraine headache. HISTORY OF PRESENT ILLNESS: This is a 48-year-old female who returns to the pain clinic today for a refill of her medications. Today, she is rating her pain as 7/10. She is very depressed looking and tearful at times throughout this visit because she is telling me she has been having daily migraines, because she has not been on one of her long-term migraine medicines. She is unsure why, but she tells me that the last month has not been good for her, she has been suffering every day with her migraine as well as her low back pain that radiates into both of her legs. Her pain score is a 7/10, worse with activity and walking. The medications of her narcotics are helpful in treating her back and leg pain, but her typical migraine medicine has not been helping since she has not been getting it from her pharmacy, though she is unsure why. The patient would like a refill of her medicines and also to be switched back to baclofen 10 mg tablets instead of the 20 because she states the size of the pill is too big for her. ALLERGIES: PENICILLIN, TAPE, SULFA, DAYPRO, AND VANCOMYCIN. CURRENT LIST OF MEDICATIONS: OxyContin 20 mg b.i.d., hydrocodone t.i.d., Zofran p.r.n., Maxalt, nortriptyline, Neurontin, propranolol, baclofen, Remeron, Senokot, Restoril and Rozerem. PQRS: 1. She has known arthritic changes in her hips. Denies any rheumatoid arthritis. 2. Height is 5 feet 7 inches, weight is 152, BMI is 23. 3. Vital signs 131/84, pulse is 110, respirations 16, oxygen sat is 99. 4. Pain score is 7/10. 5. Denies dizziness, does not need help walking or standing, has not fallen in the last 3 months. 6. The patient is not on any blood thinners and does not take medicine for hypertension. 7. Opioid therapy is greater than 6 weeks; therefore, an opioid signed contract is on the chart. Risk assessment tool is low. Functional assessment is . 8. Recreational drug use, she denies. She is not [place] [address] PAIN MANAGEMENT CONSULTATION Name: LYNN ANDERSON Room #: REG [facility] Lam#: [id number] Admission: 01/03/19 Attend Phys: Lzu Hagen Discharge: Date of : 70 Report #: [id number] alcohol. According to the prescription monitoring system, the patient is filling her narcotics in a timely fashion and is due for those medicines today. There is a recent drug screen on the chart as well. PHYSICAL EXAMINATION: GENERAL: This is a well-developed, well-nourished white female who appears her stated age, placing her current pain score at 7/10. She has a flat affect today and tearful at times. She is alert and orientated. HEENT: Normocephalic, atraumatic. Extraocular eye muscles are intact. Mucous membranes are moist. Complains of headache that starts behind her eyes and radiates towards the temporal part of her head. She has photosensitivity today. NECK: Without adenopathy or JVD. MUSCULOSKELETAL: The patient walks with a slightly antalgic gait. Pain radiates from her lumbar spine down her right hip into her right foot along the lateral aspect of her leg. Her lower extremity strength judged to be 5/5 in all major muscle groups. IMPRESSION: 1. Chronic back pain with history of spinal cord stimulator. 2. Chronic migraine headaches. 3. Right foot pain. 4. Lumbar radiculopathy, status post lumbar laminectomy. 5. High risk medications under terms of written opioid agreement. 6. History of seizures, none recently. We reviewed the fact that opiate medications are being used to provide analgesia adequate to support activities of daily living, not attempting to achieve a specific pain score on the 0-10 Visual Analog Scale. The current opiate medications are providing sufficient analgesia to allow the patient to participate in activities of daily living. The patient is not exhibiting any aberrant behavior suggestive of drug diversion. The patient is not having any adverse reactions to medications. The patient is not suffering from daytime somnolence or mental acuity changes. The patient is managing opiate-induced constipation with appropriate gmpn-orj-ummuoxp agents and dietary considerations. The patient was counseled on concern for caution with operating a motor vehicle while using opiate medications. A physical exam was performed and the patient's functional status was evaluated. All patients with back pain were advised against the bed rest greater than 4 days and were advised to return to normal activities. Pain score assessment was noted and the treatment plan was reviewed with the patient. All current medications, both prescribed and OTC were reviewed and reconciled on the electronic medical record. Tobacco screening was accomplished and smoking cessation was advised when indicated. BMI was noted and diet/exercise [facility] [address] [place] [address] PAIN MANAGEMENT CONSULTATION Name: LYNN ANDERSON [id number] Admission: 01/03/19 Attend Phys: Luz Hagen Discharge: Date of : 70 Report #: [id number] modification was recommended for all patients following outside normal parameters. I reviewed with the patient today their responsibilities to safeguard prescription medications, reviewed their responsibility to utilize medications only as prescribed by the physician. They are to seek and receive pain medications only from 1 physician group ( [facility]). They are to use 1 pharmacy and keep the clinic informed if they change pharmacies. Their responsibilities include making followup visits in a timely fashion and to avoid abrupt discontinuation of medication usage. Their responsibilities further include bringing their medications (bottles from the pharmacy with residual pills) to the visit for possible confirmation of pill counts and the patient understands it is their responsibility to submit to random drug screens to ensure both that the medications prescribed are present, and that no other controlled substances are present. All prescriptions provided today were generated electronically. PLAN: 1. We discussed treatment options with the patient today. The patient tells me that she needs to be back on all of the medications that we had her on in the past. She tells me that we had quit writing for something and now her headaches have been back. Per our records, we have not changed any of her medications except decreasing her pain pills, which was several months ago, but on further investigations that her pharmacy has not been filling her propranolol. The patient encouraged to restart that, but start at 1 tablet a day, then increase to 2 after 3-4 days to see if that is beneficial in reducing her migraine headaches. Scripts were given today for 80 mg b.i.d. #60 with one additional refill. 2. The patient requested a change back to 10 mg of baclofen from 20. She felt that the 20 mg tablets were too large, had difficulty swallowing. Scripts were given today for baclofen 10 mg q.i.d., #120 with one additional refill. 3. All of her other medications were unchanged of her hydrocodone 10/325 #90 for today and 4-week release; OxyContin 20 mg, #60 for today and 4-week release; Maxalt 10 mg #12 with 1 refill; gabapentin 300 mg b.i.d., #60 with 1 refill; and nortriptyline 25 mg 2 tablets at bedtime, #60 with one additional refill. 4. The patient encouraged to call if she has any problems with her medication fills. If we need to do a prior authorization, we will do that for her migraine medicines. 5. The patient is seen with Dr. Andino who collaborated with care today. The patient will return in followup in 2 months. <ELECTRONICALLY SIGNED> By: Luz Hagen 01/04/19 0817 [id number] Luz Hagen /nt
== END ==
LOC: PAIN 06:45
DX: M54.5 Low back pain (principal); M79.671 Pain in right foot; G43.909 Migraine, unspecified, not intractable, without status migrainosus; Z88.0 Allergy status to penicillin; Z88.2 Allergy status to sulfonamides; Z88.8 Allergy status to other drugs, medicaments and biological substances; Z91.040 Latex allergy status; Z79.891 Long term (current) use of opiate analgesic

== ENCOUNTER → 2019-03-05 | Outpatient (CLI) | payer OTHER ==
[~2019-03-05] VITALS: Ht 170.2 cm; Wt 68.8 kg
[~2019-03-05] MED LIST changes: +BACLOFEN 10MG T10 MG PO; +NEURONTIN300 MG PO; +SUBOXONE 8 MG-1 EAC3 SUBLING
[2019-03-05 09:27] VITALS: BP 121/74
--- NOTE | 2019-03-05 09:39 | NUR ---
Pain Clinic Assessment: 1. History of Osteoarthritis: Not Applicable History of Rheumatoid Arthritis: Not Applicable 2. Height: 5 ft. 7 in. 170.2 cm. Weight: 151.6 lb. oz. 68.765 kg. Patient's BMI: 23.7 3. Vital Signs: BP: 121/74 Pulse: 94 Resp: 18 Temp: 02 Sat: 99 ECG Mon: 4. Pain Intensity: 6 5. Fall Risk: Dizziness: N Needs help standing or walking: N Fallen in the last 3 months: N Fall risk comments: 6. Patient on Blood Thinner: None 7. History of Hypertension: N 8. Opioid Therapy greater than 6 weeks: Y Opiate Contract Signed: 01/01/16 9. Risk Assessment Tool Provided: LOW RISK 0/3 10. Functional Assessment Tool: 11. Recreational Drug Use: Never Drug Type: Tobacco Use: Never Smoker Tobacco Type: Amount or Packs/day: How Many Years: Alcohol Use: No Frequency: Quant:
--- NOTE | 2019-03-07 09:13 | HPC ---
[facility] [place] [address] PAIN MANAGEMENT CONSULTATION Name: LYNN ANDERSON Room #: REG [facility].#: [id number] Admission: 03/05/19 Attend Phys: Luz Hagen Discharge: Date of : 70 Report #: [id number] THIS REPORT FOR: //name// CC: TAMY Angelo MD DATE OF SERVICE: 03/05/2019 CHIEF COMPLAINT: Low back pain, right foot pain and ankle pain, and migraine headache. HISTORY OF PRESENT ILLNESS: This is a 49-year-old female who returns to the pain clinic today for refill of her medications that she uses to help her ongoing low back pain from her multiple back surgeries. She also has ongoing migraine headaches. Today, she reports a pain score of 6/10. It is a sharp, aching chronic pain that is worse with walking activity, bending. She believes the medications are beneficial. I questioned the patient about a phone call we received as well as documentation from the [facility] about a potential overdose. The patient arrived there on 01/08/2019, per the report"in and out of consciousness." A pill count was performed which were significantly less(per report "she is missing 44 Ackerly, 16 oxycodone and 16 Baclofen tablets") thus further evidence of potential overdose and also needed Narcan administered to her. Her family member reported that "she was in and out of consciousness after using glue". The patient denies that this was not the case. She was suffering from a migraine. She went there on her own according. She reports she was alert when the Narcan was given to her. She was there throughout the day and released later in that evening. According to the prescription monitoring system, the patient is filling her medicines appropriately, though according to the pill count, she had significantly less then the amount that she should have had 4 days after filling her most recent prescription. Today, she is here, wanting refills of her medications, telling me that she takes them appropriately and that was a misunderstanding at the Emergency Room. ALLERGIES: TAPE, PENICILLIN, SULFA, DAYPRO, AND VANCOMYCIN. CURRENT LIST OF MEDICATIONS: OxyContin 20 mg b.i.d., hydrocodone 10/325 t.i.d., Maxalt p.r.n. migraines, nortriptyline 50 mg at bedtime, gabapentin 300 mg b.i.d., propranolol 80 mg b.i.d., baclofen 10 mg q.i.d. p.r.n., Zofran p.r.n., Remeron 15 mg at bedtime, Senokot, Restoril 15 mg at bedtime and Rozerem 8 [place] [address] PAIN MANAGEMENT CONSULTATION Name: LYNN ANDERSON Room #: REG CL [facility]#: [id number] Admission: 03/05/19 Attend Phys: Luz Hagen Discharge: Date of : 70 Report #: [id number] PQRS: 1. She has known arthritic changes in her hips. Denies any rheumatoid arthritis. 2. Height is 5 feet 7 inches, weight is 151. BMI is 23. Vital signs, blood pressure 121/74, pulse is 94, respirations 18, and oxygen sat is 99. 3. Pain score 6/10. 4. Denies dizziness, does not need help walking, and has not fallen in the last 3 months. 5. The patient is not on any blood thinners. She does not take medicine for hypertension. 6. Opioid therapy is greater than 6 weeks; therefore, an opioid signed contract is on the chart. Her risk assessment tool is low. Functional assessment is 19/70. 7. Recreational drug use, she denies. She is not a smoker and does not drink alcohol. According to the prescription monitoring system, the patient is filling appropriately for her opioid medications. We did check the prescription monitoring in [place], [place], [place], and [place]. They were all appropriate fills a month apart from our doctors. There was only one aberrant fill for Phenergan with Codeine in October. There is a recent drug screen on the chart as well, that shows her currently medication only. PHYSICAL EXAMINATION: GENERAL: This is a well-developed, well-nourished white female who appears her stated age, placing her current pain score at 6/10 today. She has a flat affect. She is alert and orientated. HEENT: Normocephalic, atraumatic. Extraocular eye muscles are intact. Mucous membranes are moist. NECK: Without adenopathy or JVD. MUSCULOSKELETAL: The patient walks with a slightly antalgic gait, but able to move without significant difficulty. She has pain that radiates from her lumbar spine down her right hip into her right foot. Her lower extremity strength judged to be 5/5 in all major muscle groups. She has well-healed scars from her previous back surgery. Her reflexes are adequate and sensation is normal in her lower extremities. IMPRESSION: 1. Chronic back pain with history of spinal cord stimulator, nonworking currently. 2. Chronic migraine, headaches. 3. Right foot pain. 4. Lumbar radiculopathy, status post lumbar laminectomies. 5. History of high risk medications under terms of written opioid agreement. 6. Recent possible overdose requiring Narcan at an outside facility. [facility] [address] [place] [address] PAIN MANAGEMENT CONSULTATION Name: LYNN ANDERSON [facility] [id number] Admission: 03/05/19 Attend Phys: Luz Hagen Discharge: Date of : 70 Report #: [id number] 7. Opioid use disorder. PLAN: 1. Dr. Angelo was present for part of the discussion today. The patient admits that she was in the hospital, but does not admit that it was an overdose. We asked if there was a family member or friend that could collaborate her story due to the fact that "it says family reported that she was in and out of consciousness". The patient tells us that is against the HIPPA violation to have a family or friend present. We explained to her that we were not wanting to violate her HIPPA rights but we are just requesting to hear their side of the story since we have a report that states they witnessed this event. We only have her word plus the documentation from the hospital. Again, the patient is not willing to have any other friends or family to talk to us about this report. 2. Dr. Juan Carlos Angelo explained to her how we have our need to safeguard our patient's health and reports of suspicious overdose, we cannot continue her on her current medications. The patient has decreased her opioid medications through the past year from 150 morphine mEq to now 90 and has done quite well managing her pain on these lower doses. We explained to her that we will now need to switch her to Suboxone 8/2 two times a day. The patient was upset by this. She thinks that we are "kicking her to the curb". We explained to her that we would continue to write for her medications, though with this report we cannot keep her on her currently medication. Suboxone will help with her pain but also has a Nalaxone component to the medication. We explained that we are giving for her chronic pain and opioid use disorder. 3. Scripts given today for Suboxone 8/2 #60 b.i.d. tablet or films given for 1 month. The patient will return in 1 month. We also encouraged the patient to attend counseling. We gave her a list of inpatient and outpatient counseling centers. The patient did take the paper, but explained that she will not be see anybody for counseling. 4. Scripts also given for refills of her Maxalt, gabapentin, nortriptyline, baclofen and propranolol. 5. Appointment made for 1 month for followup on these medications. The patient did tell the nurse upon discharge that she probably will not keep this appointment, but will cancel it at a later date if she chooses. We did explain to her that her primary care doctor can write all of these medications except for Suboxone. 6. The patient discharged to home. The patient is seen again with Dr. Angelo, who collaborated care and had a lengthy discussion greater than 25 minutes with the patient as well today. <ELECTRONICALLY SIGNED> By: Luz Hagen 03/07/19 0913 [id number] Luz Hagen /damaris
== END ==
LOC: PAIN 06:48
DX: G43.909 Migraine, unspecified, not intractable, without status migrainosus (principal); M54.16 Radiculopathy, lumbar region; Z79.899 Other long term (current) drug therapy; Z79.891 Long term (current) use of opiate analgesic; Z88.8 Allergy status to other drugs, medicaments and biological substances

== ENCOUNTER → 2019-04-04 | Outpatient (CLI) | payer OTHER ==
[~2019-04-04] VITALS: Ht 170.2 cm; Wt 73.0 kg
[~2019-04-04] MED LIST changes: +BUPRENORPHINE HC8 MG SUBLING
[2019-04-04 08:49] VITALS: BP 138/73
--- NOTE | 2019-04-04 08:53 | NUR ---
Pain Clinic Assessment: 1. History of Osteoarthritis: Not Applicable History of Rheumatoid Arthritis: Not Applicable 2. Height: 5 ft. 7 in. 170.2 cm. Weight: 161.0 lb. oz. 73.029 kg. Patient's BMI: 25.2 3. Vital Signs: BP: 138/73 Pulse: 90 Resp: 16 Temp: 02 Sat: 94 ECG Mon: 4. Pain Intensity: 6 5. Fall Risk: Dizziness: N Needs help standing or walking: N Fallen in the last 3 months: Y Fall risk comments: 6. Patient on Blood Thinner: None 7. History of Hypertension: N 8. Opioid Therapy greater than 6 weeks: Y Opiate Contract Signed: 01/01/16 9. Risk Assessment Tool Provided: LOW RISK 0 10. Functional Assessment Tool: 11. Recreational Drug Use: Never Drug Type: Tobacco Use: Never Smoker Tobacco Type: Amount or Packs/day: How Many Years: Alcohol Use: No Frequency: Quant:
--- NOTE | 2019-04-05 08:46 | HPC ---
[facility] [place] [address] [place] [address] PAIN MANAGEMENT CONSULTATION Name: LYNN ANDERSON Room #: REG [facility].#: [id number] Admission: 04/04/19 Attend Phys: Luz Hagen Discharge: Date of : 70 Report #: [id number] THIS REPORT FOR: //name// CC: TAMY Hagen Physician staff DATE OF SERVICE: 04/04/2019 CHIEF COMPLAINT: Low back pain, right foot and ankle pain and migraine headaches. HISTORY OF PRESENT ILLNESS: This is a 49-year-old female who returns to the pain clinic today for a refill of her medications. We did recently switch her to Suboxone at her last visit and had taken her off her OxyContin and hydrocodone. The patient is reporting a pain score of 6/10. She reports that this medication has made her nauseated at times, other times it is not affecting her in that way. She feels that her pain score is about the same with this medication. Her pain is worse with activity, walking, standing and bending. She denies any problems with constipation. She reports that she has only had a couple of migraines in the past month. She feels like those are controlled currently. She would like refills of her medicine today. ALLERGIES: TAPE, PENICILLIN, SULFA, DAYPRO, and VANCOMYCIN. CURRENT LIST OF MEDICATIONS: Suboxone 8/2 b.i.d., Maxalt p.r.n., nortriptyline, gabapentin, propranolol, baclofen, Zofran p.r.n., Remeron, Senokot, temazepam and Rozerem. PQRS: 1. She has arthritic changes in her hips. Denies any rheumatoid arthritis. 2. Height is 5 feet 7 inches, weight is 161. BMI is 25. 3. Vital signs: Blood pressure 138/73, pulse is 90, respirations 16, oxygen sat is 94. 4. Pain score is 6/10. 5. Denies dizziness, does not need help walking or standing, has fallen in the last 3 months. 6. The patient is not on any blood thinners or medicines for hypertension. 7. Opiate therapy is greater than 6 weeks; therefore, an opioid signed contract is on the chart. Her risk assessment tool is low. Functional assessment is . 8. Recreational drug use, she denies. She is not a smoker and does not drink alcohol. According to the prescription monitoring system, the patient is filling appropriately for her medications with no aberrant fills. She is due for her [address] [address] PAIN MANAGEMENT CONSULTATION Name: LYNN ANDERSON [facility] [id number] Admission: 04/04/19 Attend Phys: Luz Hagen Discharge: Date of : 70 Report #: [id number] medications today. There is a recent drug screen on the chart as well. PHYSICAL EXAMINATION: GENERAL: This is alert and orientated 49-year-old female who appears her stated age, placing her current pain score at 6/10 today. She has a flat affect today. HEENT: Normocephalic, atraumatic. Extraocular eye muscles are intact. Mucous membranes are moist. NECK: Without adenopathy or JVD. MUSCULOSKELETAL: Pain in the lumbar spine that radiates down bilateral legs to her right foot. Lower extremity strength judged to be 5/5 in all major muscle groups with good cessation and muscle tone. She has well-healed scars in her back from her previous back surgeries. She walks with a slightly antalgic gait, but able to move from sitting to standing position without difficulty. ASSESSMENT: 1. Chronic back pain with history of spinal cord stimulator, nonworking. 2. Chronic migraine headaches. 3. Right foot pain. 4. Lumbar radiculopathy, status post lumbar laminectomies. 5. History of high risk medications under terms of written opioid agreement. 6. Opioid use disorder. We reviewed the fact that opiate medications are being used to provide analgesia adequate to support activities of daily living, not attempting to achieve a specific pain score on the 0-10 Visual Analog Scale. The current opiate medications are providing sufficient analgesia to allow the patient to participate in activities of daily living. The patient is not exhibiting any aberrant behavior suggestive of drug diversion. The patient is not having any adverse reactions to medications. The patient is not suffering from daytime somnolence or mental acuity changes. The patient is managing opiate-induced constipation with appropriate qonk-laj-xorjewq agents and dietary considerations. The patient was counseled on concern for caution with operating a motor vehicle while using opiate medications. A physical exam was performed and the patient's functional status was evaluated. All patients with back pain were advised against the bed rest greater than 4 days and were advised to return to normal activities. Pain score assessment was noted and the treatment plan was reviewed with the patient. All current medications, both prescribed and OTC were reviewed and reconciled on the electronic medical record. Tobacco screening was accomplished and smoking cessation was advised when indicated. BMI was noted and diet/exercise modification was recommended for all patients following outside normal parameters. I reviewed with the patient today their responsibilities to safeguard prescription medications, reviewed their responsibility to utilize medications [address] [address] PAIN MANAGEMENT CONSULTATION Name: LYNN ANDERSON Room #: REG [facility]#: [id number] Admission: 04/04/19 Attend Phys: Luz Hagen Discharge: Date of : 70 Report #: [id number] only as prescribed by the physician. They are to seek and receive pain medications only from 1 physician group ( [facility]). They are to use 1 pharmacy and keep the clinic informed if they change pharmacies. Their responsibilities include making followup visits in a timely fashion and to avoid abrupt discontinuation of medication usage. Their responsibilities further include bringing their medications (bottles from the pharmacy with residual pills) to the visit for possible confirmation of pill counts and the patient understands it is their responsibility to submit to random drug screens to ensure both that the medications prescribed are present, and that no other controlled substances are present. All prescriptions provided today were generated electronically. PLAN: 1. We discussed treatment options with the patient today. The patient reports that she finds the Suboxone taking care of most of her pain as the same as her OxyContin had in the past, though she continues to complain of nausea with this medication. I explained to her that we are not willing to go back to her previous medications due to her history of a possible misuse. I will consider taking the naloxone out, which does cause some patients nausea when they are splitting the dose in half. We will try straight buprenorphine 8 mg two a day. If this continues to cause drowsiness as well, we will place her back on the Suboxone, which the patient tells me towards the end of the month, she was tolerating slightly better. Script given for today of 8 mg buprenorphine, #60 with one additional refill. 2. The patient is not needing her baclofen, propranolol, gabapentin, nortriptyline, or Maxalt refilled today. She may call in May and we will refill those at that time. 3. The patient will follow up in 2 months unless she continues to have issues with this medication. 4. The patient is seen in collaboration with Dr. Edd Andino. <ELECTRONICALLY SIGNED> By: Luz Hagen 04/05/19 0846 0930 [id number] Luz Hagen /damaris
== END ==
LOC: PAIN 06:53
DX: M54.5 Low back pain (principal); G43.909 Migraine, unspecified, not intractable, without status migrainosus; M54.16 Radiculopathy, lumbar region; M79.671 Pain in right foot

== ENCOUNTER → 2019-06-06 | Outpatient (CLI) | payer OTHER ==
[~2019-06-06] VITALS: Ht 170.2 cm; Wt 74.8 kg
[~2019-06-06] MED LIST changes: +BUPRENORPHINE HC2 MG SUBLING
[2019-06-06 10:25] VITALS: BP 127/72
--- NOTE | 2019-06-06 10:33 | NUR ---
Pain Clinic Assessment: 1. History of Osteoarthritis: Not Applicable History of Rheumatoid Arthritis: Not Applicable 2. Height: 5 ft. 7 in. 170.2 cm. Weight: 164.8 lb. oz. 74.753 kg. Patient's BMI: 25.8 3. Vital Signs: BP: 127/72 Pulse: 87 Resp: 14 Temp: 02 Sat: 99 ECG Mon: 4. Pain Intensity: 6 5. Fall Risk: Dizziness: N Needs help standing or walking: N Fallen in the last 3 months: N Fall risk comments: 6. Patient on Blood Thinner: None 7. History of Hypertension: N 8. Opioid Therapy greater than 6 weeks: Y Opiate Contract Signed: 01/01/16 9. Risk Assessment Tool Provided: LOW RISK 0 10. Functional Assessment Tool: 11. Recreational Drug Use: Never Drug Type: Tobacco Use: Never Smoker Tobacco Type: Amount or Packs/day: How Many Years: Alcohol Use: No Frequency: Quant:
--- NOTE | 2019-06-07 13:11 | HPC ---
[facility] [place] [address] PAIN MANAGEMENT CONSULTATION Name: LYNN ANDERSON Room #: REG [facility].#: [id number] Admission: 06/06/19 Attend Phys: Luz Hagen Discharge: Date of : 70 Report #: [id number] THIS REPORT FOR: cc: TAMY MARKS Physician not on staff Luz Hagen THIS REPORT FOR: //name// CC: TAMY Hagen Physician staff DATE OF SERVICE: 06/06/2019 CHIEF COMPLAINT: Low back pain, right foot pain and ankle pain and migraine headaches. HISTORY OF PRESENT ILLNESS: This is a 49-year-old female who returns to the pain clinic today for refill of her medications. She reports that her pain score is 6/10. She has been without her nonopioid medications for about 2 weeks because she was not able to come in for an appointment until now. The patient has been able to continue her buprenorphine. Her pain score is a 6/10 that she describes as a constant, sharp pain, worse with any activity and prolonged standing and walking and she feels the medications are beneficial in helping control her migraine headaches as well as her low back pain. The patient is reporting that she wants to come every 3 months that she had in the past and does not understand why she is not able to do this now. ALLERGIES: TAPE, PENICILLIN, SULFA, DAYPRO and VANCOMYCIN. CURRENT LIST OF MEDICATIONS: Buprenorphine 8 mg b.i.d., Maxalt, nortriptyline, gabapentin, propranolol, baclofen, Zofran, Remeron, Ventolin, Senokot, temazepam and Rozerem. PQRS: 1. She has arthritic changes in her hips. Denies any rheumatoid arthritis. 2. Height is 5 feet 7 inches, weight is 164, BMI is 25. 3. Vital signs 127/72, pulse is 87, respirations 14, oxygen sat is 99. 4. Pain score 6/10. 5. Denies dizziness, does not need help walking or standing, has not fallen in the last 3 months. 6. The patient is not on any blood thinners or medicine for hypertension. Opioid therapy is greater than 6 weeks; therefore, an opioid signed contract is on the chart. Risk assessment tool is low. Functional assessment is . 7. Recreational drug use, she denies. She is not a smoker and does not drink [address] [address] PAIN MANAGEMENT CONSULTATION Name: LYNN ANDERSON Room #: REG CLI [facility]#: [id number] Admission: 06/06/19 Attend Phys: Luz Hagen Discharge: Date of : 70 Report #: [id number] alcohol. According to the prescription monitoring system, she filled her opioids in early May. She is due to fill those today. According to the CDC guidelines, her morphine mEq currently is 160 MMEs. PHYSICAL EXAMINATION: GENERAL: She is alert and orientated, slightly agitated 49-year-old female who appears her stated age, placing her current pain score at 6/10. HEENT: Normocephalic, atraumatic. Extraocular eye muscles are intact. Mucous membranes are moist. NECK: Without adenopathy or JVD. MUSCULOSKELETAL: Pain radiates in the lumbar spine, radiating into her bilateral legs. She has an antalgic gait. Lower extremity strength judged to be 5/5 in all major muscle tones with good sensation from L1-S2. She moves from sitting to standing without any difficulty. ASSESSMENT: 1. Chronic back pain with history of spinal cord stimulator, currently not working. 2. Chronic migraine headaches. 3. Right foot pain. 4. Lumbar radiculopathy, status post lumbar laminectomy. 5. High risk of medications under written opioid agreement. 6. Opioid use disorder. We reviewed the fact that opiate medications are being used to provide analgesia adequate to support activities of daily living, not attempting to achieve a specific pain score on the 0-10 Visual Analog Scale. The current opiate medications are providing sufficient analgesia to allow the patient to participate in activities of daily living. The patient is not exhibiting any aberrant behavior suggestive of drug diversion. The patient is not having any adverse reactions to medications. The patient is not suffering from daytime somnolence or mental acuity changes. The patient is managing opiate-induced constipation with appropriate lulk-vau-hezkskn agents and dietary considerations. The patient was counseled on concern for caution with operating a motor vehicle while using opiate medications. PLAN: 1. We discussed treatment options with the patient today. I explained to her that it is the policy of our clinic to follow the CDC guidelines, seeing patients every 1 month, 2 months or 3 months depending on their morphine mEq. According to her current dosage, she should be seen on the monthly basis. Doctor currently is letting her come every 2 months due to financial difficulties as it is. We would be able to see her on a 3-month basis if we did decrease her morphine mEq. The patient verbalized understanding. She wants to [address] [address] PAIN MANAGEMENT CONSULTATION Name: LYNN ANDERSON Room #: REG [facility]#: [id number] Admission: 06/06/19 Attend Phys: Luz Hagen Discharge: Date of : 70 Report #: [id number] decrease this and hopeful maybe she will be able to wean off of them altogether. Today, we will reduce her buprenorphine 2 mg 2 tablets twice a day, a total of 8 mg a day basically decreasing her MME in half, which is currently at 80 MME now. The patient will come back in 3 months. If the patient decides she would like to wean prior to that time, she is instructed to call our office and we will discuss how to decrease her dose further. 2. We will refill her nortriptyline 25 mg 2 tablets at bedtime, #60; propranolol 80 mg b.i.d. #60 for 5 additional refills; Maxalt 12 tablets with 5 refills; gabapentin 300 mg b.i.d., #60 with 5 additional refills and gabapentin q.i.d., #120 with 5 additional refills. These were all sent electronically to her pharmacy. This is a total of 6 months for all these medications. We will refill these every other appointment for her. The patient was seen in collaboration with Dr. Edd Andino today. The patient will return in 3 months. <ELECTRONICALLY SIGNED> By: Luz Hagen 06/07/19 1311 [id number] Luz Hagen /nt
== END ==
LOC: PAIN 06:47
DX: M54.16 Radiculopathy, lumbar region (principal); M79.671 Pain in right foot; M25.571 Pain in right ankle and joints of right foot; G43.909 Migraine, unspecified, not intractable, without status migrainosus; F11.99 Opioid use, unspecified with unspecified opioid-induced disorder; Z88.0 Allergy status to penicillin; Z88.2 Allergy status to sulfonamides; Z88.1 Allergy status to other antibiotic agents; Z91.048 Other nonmedicinal substance allergy status; Z79.899 Other long term (current) drug therapy; Z98.890 Other specified postprocedural states